=== PATIENT | female | born 1990 | race Two or more races ===

== ENCOUNTER 2022-11-23 13:23 | Emergency (ER) | payer OTHER ==
[~2022-11-23] VITALS: Ht 160 cm; Wt 68.0 kg
[~2022-11-23 13:23] MED LIST: OXYC1TAB9 PO; Synthroid PO
== END 2022-11-23 16:26 | disposition home or self-care (01) ==
LOC: ER 13:23
DX: O20.8 Other hemorrhage in early pregnancy (principal); Z3A.15 15 weeks gestation of pregnancy; Z88.6 Allergy status to analgesic agent; Z91.013 Allergy to seafood